=== PATIENT | male | born 1965 | race Caucasian/White ===

== ENCOUNTER 2016-11-07 11:20 | Outpatient (CLI) | payer BC | END 2016-11-07 11:21 | disposition home or self-care (01) | DX: M51.26 Other intervertebral disc displacement, lumbar region (principal); M99.03 Segmental and somatic dysfunction of lumbar region; M54.16 Radiculopathy, lumbar region ==

== ENCOUNTER 2016-11-28 14:49 | Outpatient (CLI) | payer BC | END 2016-11-28 14:50 | disposition home or self-care (01) | DX: M51.26 Other intervertebral disc displacement, lumbar region (principal); M99.03 Segmental and somatic dysfunction of lumbar region; M54.16 Radiculopathy, lumbar region ==

== ENCOUNTER 2017-02-05 09:13 | Outpatient (CLI) | payer BC ==
[2017-02-05 13:21] LABS: BASOPHILS % (AUTO) 0.8 %; EOSINOPHILS # (AUTO) 0.2 10^3/uL (0.0-0.7); EOSINOPHILS % (AUTO) 3.1 %; HCT - HEMATOCRIT 42.7 % (42.0-52.0); HGB - HEMOGLOBIN 14.6 g/dL (14.0-18.0); LYMPHOCYTES # (AUTO) 2.1 10^3/uL (1.5-3.5); LYMPHOCYTES % (AUTO) 35.6 %; MEAN CORPUSCULAR HEMOGLOBIN 30.7 pg (27.0-31.0); MEAN CORPUSCULAR HGB CONC 34.1 g/dL (32.0-36.0); MEAN CORPUSCULAR VOLUME 90.1 fL (80.0-94.0); MONOCYTES # (AUTO) 0.6 10^3/uL (0.0-1.0); MONOCYTES % (AUTO) 9.5 %; NUCLEATED RED BLOOD CELLS AUTO 0.1 /100WBC; RED BLOOD COUNT 4.74 10^6/uL (4.70-6.10); RED CELL DISTRIBUTION WIDTH 13.4 % (12.0-15.0); UNCORRECTED WHITE BLOOD COUNT 5.9 x10^3/uL; WHITE BLOOD COUNT 5.9 x10^3/uL (4.8-10.8)
[2017-02-05 13:35] LABS: ALBUMIN/GLOBULIN RATIO 1.2 (1.0-2.2); BILIRUBIN,TOTAL 0.2 mg/dL (0.2-1.0); CALCIUM 8.8 mg/dL (8.5-10.3); POTASSIUM 3.9 mmol/L (3.5-5.0); TOTAL PROTEIN 7.4 g/dL (6.7-8.2); URIC ACID 6.2 mg/dL (2.6-7.2)
[2017-02-07 13:16] LABS: ANA SCREEN NEGATIVE (NEGATIVE)
== END 2017-02-05 09:14 | disposition home or self-care (01) ==
LOC: LAB.WCP 09:13
PROVIDERS: ATTEND Family Medicine
DX: M79.643 Pain in unspecified hand (principal); H57.8 Other specified disorders of eye and adnexa
CPT/HCPCS: 36415; 80053; 84550; 85025; 85651; 86038; 86430

== ENCOUNTER 2017-04-29 23:07 | Outpatient (CLI) | payer BC | END 2017-04-29 23:08 | disposition critical access hospital (66) | LOC: EMS 23:07 | PROVIDERS: ATTEND Surgery | DX: M54.9 Dorsalgia, unspecified (principal) | CPT/HCPCS: A0425; A0429 ==

== ENCOUNTER 2017-04-29 23:34 | Emergency (ER) | payer BC ==
[2017-04-29] MEDS ORDERED: ACETAMINOPHEN 500 MG TABLET PO STA (23:42)
[2017-04-29] MEDS ORDERED: diazePAM 5 MG TABLET PO STA (23:42)
[2017-04-29] MEDS ORDERED: DEXAMETHASONE 10 MG/ML VIAL PO STA (23:42)
--- NOTE | 2017-04-29 23:48 | ED Physician Documentation ---
PD HPI BACK PAIN - Stated complaint Stated Complaint: LW BACK PN - Chief complaint Chief Complaint: Back Pain - History obtained from History obtained from: Patient, EMS - History of Present Illness Timing - onset: Today Timing - details: Gradual onset, Still present Location: Lower, Left Quality: Pain, Spasm, Aching Associated symptoms: No: Fever, Weakness, Numbness, Incontinent of urine, Unable to urinate, Hematuria Worsened by: Movement, Palpation Similar symptoms before: Work up / diagnostics, Treatment Recently seen: Not recently seen - Additional information Additional information: Patient is 51 year old male with a history of chronic low back pain, and low grade arthritis and bulging discs who is presenting to the emergency department for low back pain. Patient states that when he got up to go to work he had some pain and spasm of his left lower back. Patient states that it persisted this evening so his mom called the ambulance. Patient was able to ambulate out to the ambulance. Patient denies any trauma, bending lifting or twisting. Patient also denies any neurological deficits. Review of Systems Constitutional: denies: Fever, Chills Eyes: reports: Reviewed and negative Ears: reports: Reviewed and negative Nose: reports: Reviewed and negative Cardiac: denies: Chest pain / pressure, Palpitations Respiratory: denies: Dyspnea, Cough, Wheezing GI: denies: Abdominal Pain, Nausea, Vomiting, Constipation : denies: Frequency, Unable to Void, Incontinent Skin: denies: Rash, Lesions, Abrasion (s), Laceration (s) Musculoskeletal: reports: Back pain Neurologic: denies: Generalized weakness, Focal weakness, Numbness Immunocompromised: denies: Immunocompromised PD PAST MEDICAL HISTORY - Past Medical History Past Medical History: Yes Cardiovascular: None Respiratory: None Neuro: Other Endocrine/Autoimmune: None GI: Other : None HEENT: None Musculoskeletal: Chronic back pain Derm: None Other Past Medical History: Cerebral Palsy - Past Surgical History Past Surgical History: Yes General: Other HEENT: Other - Present Medications Home Medications: Ambulatory Orders Medication Instructions Recorded Confirmed Cyclobenzaprine [Flexeril] 10 mg PO TID PRN #14 tablet 04/30/17 - Allergies Allergies/Adverse Reactions: Allergies Allergy/AdvReac Type Severity Reaction Status Date / Time No Known Drug Allergies Allergy Verified 04/29/17 23:45 - Social History Does the pt smoke?: No Smoking Status: Never smoker Does the pt drink ETOH?: Yes Does the pt have substance abuse?: No - Immunizations Immunizations are current?: Yes - POLST Patient has POLST: No PD ED PE NORMAL - Vitals Vital signs reviewed: Yes - General General: Alert and oriented X 3, Well developed/nourished - HEENT HEENT: Atraumatic, PERRL - Neck Neck: Supple, no meningeal sign - Cardiac Cardiac: RRR, No murmur - Respiratory Respiratory: No respiratory distress - Abdomen Abdomen: Soft, Non tender, Non distended - Derm Derm: Normal color, Warm and dry, No rash - Extremities Extremities: No deformity, No tenderness to palpate, No edema - Neuro Neuro: Alert and oriented X 3, No motor deficit, No sensory deficit, Normal speech - Psych Psych: Normal mood, Normal affect PD ED PE EXPANDED - General General: Alert, In Pain - Back Back: Soft tissue tenderness, Other (mild tenderness and hypertonicity of left lumbar paraspinal muscles). No: Vertebral tenderness Results - Vitals Vitals: Vital Signs - 24 hr 04/29/17 23:35 Temperature 36.7 C Heart Rate 89 Respiratory 16 Rate Blood Pressure 159/79 H O2 Saturation 97 Oxygen O2 Source Room air PD MEDICAL DECISION MAKING - ED course Complexity details: reviewed old records, reviewed results, re-evaluated patient , considered differential, d/w patient ED course: Patient was seen and examined at bedside. patient was in mild pain but no acute distress. Patient had take motrin at home and was treated with valium, tylenol decadron. Imaging was not indicated as patient had no recent trauma or new activities. Patient had no neurological deficits and required no further work up at this time. patient was stable for discharge with outpatient follow up. Departure - Departure Disposition: 01 Home, Self Care Clinical Impression: Back pain, Muscle spasm of back Condition: Good Instructions: ED Spasm Back No Trauma Follow-Up: Ximena Tobin PA-C [Primary Care Provider] - Tomorrow Prescriptions: Cyclobenzaprine [Flexeril] 10 mg PO TID PRN #14 tablet PRN Reason: Spasms Comments: Your pain is likely secondary to your chronic conditions. You can take motrin or tylenol as needed for pain, and the flexeril for spasm. You should follow up with your doctor tomorrow, and seek orthopedic referral. You should return to the emergency department for weakness, bladder or bowel incontinence, new worsening or uncontrollable symptoms.
[2017-04-29] MEDS ORDERED: diazePAM 5 MG TABLET PO ONE (23:54)
[2017-04-29] MEDS ORDERED: DEXAMETHASONE 10 MG/ML VIAL ONE (23:55)
[2017-04-29] MEDS ORDERED: CHERRY SYRUP 10 ML UDC PO ONE (23:55)
[2017-04-29] MEDS ORDERED: ACETAMINOPHEN 500 MG TABLET PO ONE (23:55)
[2017-04-30 00:35] VITALS: BP 125/69
== END 2017-04-30 00:49 | disposition home or self-care (01) ==
LOC: EDUNIT# → ED 23:34 → SUPCPDRO 23:34 → ED 04-30 00:49
DX: M54.5 Low back pain (principal); M62.830 Muscle spasm of back; G80.9 Cerebral palsy, unspecified
CPT/HCPCS: 99283; A9270

== ENCOUNTER 2017-06-30 09:55 | Outpatient (CLI) | payer BC ==
[2017-06-30 12:35] LABS: BASOPHILS % (AUTO) 0.9 %; EOSINOPHILS # (AUTO) 0.1 10^3/uL (0.0-0.7); EOSINOPHILS % (AUTO) 1.9 %; HCT - HEMATOCRIT 42.7 % (42.0-52.0); HGB - HEMOGLOBIN 14.7 g/dL (14.0-18.0); LYMPHOCYTES # (AUTO) 1.6 10^3/uL (1.5-3.5); LYMPHOCYTES % (AUTO) 27.4 %; MEAN CORPUSCULAR HEMOGLOBIN 30.6 pg (27.0-31.0); MEAN CORPUSCULAR HGB CONC 34.5 g/dL (32.0-36.0); MEAN CORPUSCULAR VOLUME 88.8 fL (80.0-94.0); MONOCYTES # (AUTO) 0.4 10^3/uL (0.0-1.0); MONOCYTES % (AUTO) 7.7 %; NEUTROPHILS # (AUTO) 3.5 10^3/uL (1.5-6.6); NEUTROPHILS % (AUTO) 62.1 %; NUCLEATED RED BLOOD CELLS AUTO 0.1 /100WBC; RED BLOOD COUNT 4.81 10^6/uL (4.70-6.10); RED CELL DISTRIBUTION WIDTH 13.3 % (12.0-15.0); UNCORRECTED WHITE BLOOD COUNT 5.7 x10^3/uL; WHITE BLOOD COUNT 5.7 x10^3/uL (4.8-10.8)
[2017-06-30 13:04] LABS: ALBUMIN/GLOBULIN RATIO 1.2 (1.0-2.2); BILIRUBIN,TOTAL 0.5 mg/dL (0.2-1.0); BUN - BLOOD UREA NITROGEN 15 mg/dL (6-20); CARBON DIOXIDE - CO2 24 mmol/L (21-32); CHLORIDE 103 mmol/L (101-111); CHOL/HDL RATIO 6.7 (<5.0); CHOLESTEROL 247 mg/dL; GFR - MDRD 78 (>89); GLUCOSE 117 mg/dL (70-100); HDL CHOLESTEROL 37 mg/dL; LDL/HDL RATIO 4.1 (<3.6); POTASSIUM 3.8 mmol/L (3.5-5.0); SODIUM 135 mmol/L (135-145); TOTAL PROTEIN 7.5 g/dL (6.7-8.2); TRIGLYCERIDES 284 mg/dL; VLDL CHOLESTEROL 57 mg/dL
== END 2017-06-30 09:56 | disposition home or self-care (01) ==
LOC: LAB.WCP 09:55
PROVIDERS: ATTEND Physician Assistant Medical
DX: Z00.00 Encounter for general adult medical examination without abnormal findings (principal); Z12.5 Encounter for screening for malignant neoplasm of prostate
CPT/HCPCS: 36415; 80053; 80061; 84153; 84443; 85025

== ENCOUNTER 2017-11-25 16:37 | Emergency (ER) | payer SELFPAY ==
[2017-11-25 17:17] LABS: BASOPHILS # (AUTO) 0.1 10^3/uL (0.0-0.1); BASOPHILS % (AUTO) 0.4 %; EOSINOPHILS % (AUTO) 0.1 %; HGB - HEMOGLOBIN 15.2 g/dL (14.0-18.0); LYMPHOCYTES # (AUTO) 0.9 10^3/uL (1.5-3.5); LYMPHOCYTES % (AUTO) 5.6 %; MEAN CORPUSCULAR HEMOGLOBIN 29.3 pg (27.0-31.0); MEAN CORPUSCULAR HGB CONC 33.2 g/dL (32.0-36.0); MEAN CORPUSCULAR VOLUME 88.5 fL (80.0-94.0); MEAN PLATELET VOLUME 8.1 fL (7.4-11.4); MONOCYTES # (AUTO) 0.7 10^3/uL (0.0-1.0); MONOCYTES % (AUTO) 4.5 %; NEUTROPHILS # (AUTO) 13.7 10^3/uL (1.5-6.6); NEUTROPHILS % (AUTO) 89.4 %; PLT - PLATELET COUNT 309 10^3/uL (130-450); RED BLOOD COUNT 5.19 10^6/uL (4.70-6.10); RED CELL DISTRIBUTION WIDTH 13.6 % (12.0-15.0); WHITE BLOOD COUNT 15.3 x10^3/uL (4.8-10.8)
[2017-11-25 17:30] LABS: ALBUMIN 4.7 g/dL (3.2-5.5); ALBUMIN/GLOBULIN RATIO 1.1 (1.0-2.2); BILIRUBIN,TOTAL 0.9 mg/dL (0.2-1.0); CREATININE 1.4 mg/dL (0.6-1.2); TOTAL PROTEIN 8.8 g/dL (6.7-8.2)
--- NOTE | 2017-11-25 18:04 | ED Physician Documentation ---
PD HPI ABD PAIN - Stated complaint Stated Complaint: ABD PX/NAUSEA - Chief complaint Chief Complaint: Abd Pain - History obtained from History obtained from: Patient - History of Present Illness Timing - onset: Today (about 6 am) Timing - duration: Hours (12) Timing - details: Gradual onset, Still present Quality: Cramping, Aching, Pain Location: RUQ, RLQ Radiation: Right flank Improved by: No: Vomiting Worsened by: No: Eating Associated symptoms: Nausea, Vomiting, Loss of appetite. No: Fever, Hematemesis , Diarrhea, Melena, Dysuria, Hematuria Similar symptoms before: Has not had sx before Recently seen: Clinic (went to PCP today with this and sent to ED for evaluation with concern for gallbladder or Appy.) Review of Systems Constitutional: reports: Chills. denies: Fever Nose: denies: Rhinorrhea / runny nose, Congestion Throat: denies: Sore throat Cardiac: denies: Chest pain / pressure, Palpitations Respiratory: denies: Cough GI: reports: Abdominal Pain, Nausea, Vomiting. denies: Abdominal Swelling, Constipation, Diarrhea, Bloody / black stool : denies: Dysuria, Frequency, Testicular pain, Testicular mass Skin: denies: Rash, Lesions Musculoskeletal: reports: Back pain Neurologic: denies: Generalized weakness, Focal weakness, Numbness, Near syncope PD PAST MEDICAL HISTORY - Past Medical History Cardiovascular: None Respiratory: None Endocrine/Autoimmune: None GI: Other : None HEENT: None Musculoskeletal: Chronic back pain Derm: None - Past Surgical History Past Surgical History: Yes General: Other HEENT: Other - Present Medications Home Medications: Ambulatory Orders Medication Instructions Recorded Confirmed Naproxen [Naprosyn] 500 mg PO BID #20 tablet 11/25/17 Ondansetron Odt [Zofran] 4 mg TL Q6H PRN #15 tablet 11/25/17 Oxycodone HCl/Acetaminophen 1 each PO Q6H PRN #20 tablet 11/25/17 [Percocet 5-325 mg Tablet] - Allergies Allergies/Adverse Reactions: Allergies Allergy/AdvReac Type Severity Reaction Status Date / Time No Known Drug Allergies Allergy Verified 11/25/17 16:53 - Social History Does the pt smoke?: No Smoking Status: Never smoker Does the pt drink ETOH?: Yes Does the pt have substance abuse?: No - Immunizations Immunizations are current?: Yes - POLST Patient has POLST: No PD ED PE NORMAL - Vitals Vital signs reviewed: Yes - General General: Alert and oriented X 3, Well developed/nourished, Other (appears in pain) - HEENT HEENT: Pharynx benign - Neck Neck: Supple, no meningeal sign, No adenopathy - Cardiac Cardiac: RRR, No murmur - Respiratory Respiratory: Clear bilaterally - Abdomen Abdomen: Normal bowel sounds, Soft, Non distended, No organomegaly, Other ( tender RLQ to right lateral with guarding and some percussion tenderness. No rebound tenderness. ) - Male Male : Other (no inguinal hernias nor scrotal tenderness. ) - Rectal Rectal: Deferred - Back Back: Other (some right CVA tenderness. ) - Derm Derm: Normal color, Warm and dry - Extremities Extremities: No deformity, No tenderness to palpate, Normal ROM s pain, No edema , No calf tenderness / cord - Neuro Neuro: Alert and oriented X 3, No motor deficit, Normal speech - Psych Psych: Normal mood, Normal affect Results - Vitals Vitals: Oxygen O2 Source Room air - Labs Labs: Laboratory Tests 11/25/17 11/25/17 11/25/17 17:06 17:06 21:05 WBC 15.3 H RBC 5.19 Hgb 15.2 Hct 45.9 MCV 88.5 MCH 29.3 MCHC 33.2 RDW 13.6 Plt Count 309 MPV 8.1 Neut # 13.7 H Lymph # 0.9 L [place] # 0.7 Eos # 0.0 Baso # 0.1 Absolute Nucleated RBC 0.00 Nucleated RBC % 0.0 Sodium 133 L Potassium 4.3 Chloride 97 L Carbon Dioxide 25 Anion Gap 11.0 BUN 13 Creatinine 1.4 H Estimated GFR (MDRD) 53 L Glucose 142 H Calcium 10.0 Total Bilirubin 0.9 AST 37 ALT 47 Alkaline Phosphatase 63 Total Protein 8.8 H Albumin 4.7 Globulin 4.1 Albumin/Globulin Ratio 1.1 Lipase 30 Urine Color YELLOW Urine Clarity CLEAR Urine pH 6.5 Ur Specific [place] <=1.005 Urine Protein NEGATIVE Urine Glucose (UA) NEGATIVE Urine Ketones NEGATIVE Urine Occult Blood MODERATE H Urine Nitrite NEGATIVE Urine Bilirubin NEGATIVE Urine Urobilinogen 0.2 (NORMAL) Ur Leukocyte Esterase NEGATIVE Urine RBC 11-25 H Urine WBC 0-3 Ur Squamous Epith Cells NONE SEEN Urine Bacteria None Seen Ur Microscopic Review INDICATED Urine Culture Comments NOT INDICATED - Rads (name of study) abd CT Radiology: Prelim report reviewed (gallbladder and appendix are okay. Distal right ureteral stone 3 mm with moderate obstruction. No free fluid. ) PD MEDICAL DECISION MAKING - ED course Complexity details: reviewed results (he was in ED awhile to ensure pain stayed away and also he did not urinate for awhile. I wanted to ensure not infected stone, given the pain and elevated WBC. Finally did urinate and no signs of infection. ), re-evaluated patient (feeling better with IV meds and then with Dx of ureterolithiasis, gave lido IV as well, which really helped even more. Remained at mild level of pain up to discharge. ), considered differential ( seems concerning for appy or possibly gallbladder, with abd tenderness and guarding. Positive leg raise. Will get CT. ), d/w patient Departure - Departure Disposition: 01 Home, Self Care Clinical Impression: Right sided abdominal pain, Ureterolithiasis Condition: Stable Record reviewed to determine appropriate education?: Yes Instructions: ED Stone Renal W Colic Follow-Up: Sj Pina MD [Primary Care Provider] - Prescriptions: Naproxen [Naprosyn] 500 mg PO BID #20 tablet Ondansetron Odt [Zofran] 4 mg TL Q6H PRN #15 tablet PRN Reason: Nausea / Vomiting Oxycodone HCl/Acetaminophen [Percocet 5-325 mg Tablet] 1 each PO Q6H PRN #20 tablet PRN Reason: Pain Comments: Drink adequate fluids. Naproxen or ibuprofen twice daily for the next week or so until he passes a stone. Ondansetron if needed for nausea. Add Tylenol or Percocet if needed for pain. Follow-up with Dr. NUNEZ in the next 2-3 days if not improved completely. The stone is small enough that should pass over the next few days. Your CT scan showed normal appendix and gallbladder. The urine sample did not show signs of infection. Return if more severe pain not controlled at home with oral medications. Discharge Date/Time: 11/25/17 23:18
[2017-11-25] MEDS ORDERED: IOPAMIDOL-300 100 ML VIAL ONE (18:16)
[2017-11-25] MEDS: IOPAMIDOL-300 100 ML VIAL IVP ONE (18:31)
[2017-11-25] MEDS: SODIUM CHLORIDE 0.9% 1,000 ML IV ONE ×2 (18:32→20:37)
[2017-11-25] MEDS: ONDANSETRON 4 MG/2 ML VIAL IVP STA (18:34)
[2017-11-25] MEDS: MORPHINE 10 MG/ML VIAL IVP STA (18:35)
[2017-11-25] MEDS: FAMOTIDINE 20 MG/50 ML 50 ML IV ONE (18:36)
--- NOTE | 2017-11-25 18:50 | CT Report ---
EXAM: CT ABDOMEN AND PELVIS EXAM DATE: 11/25/2017 06:32 PM. CLINICAL HISTORY: Right abdominal pain. COMPARISONS: None. TECHNIQUE: Routine helical CT imaging was performed through the abdomen and pelvis. IV contrast: 100M L ISOVUE 300. Enteric contrast: No. Reconstructions: Coronal and sagittal. In accordance with CT protocol optimization, one or more of the following dose reduction techniques w ere utilized for this exam: automated exposure control, adjustment of mA and/or KV based on patient s ize, or use of iterative reconstructive technique. FINDINGS: Lung Bases: Lung bases are clear. No pleural or pericardial effusions. No cardiac enlargement. Small hiatal hernia noted. Liver: Fatty liver. No mass. Gallbladder/Bile Ducts: Unremarkable. Spleen: Normal. Pancreas: Normal. Adrenal Glands: Normal. Kidneys: Obstructing 3 mm stone at the right ureterovesical junction results in moderate right hydrou reter and hydronephrosis and perinephric stranding. No additional obstructing or nonobstructing renal calculi. Left kidney is normal. No mass is noted. Peritoneal Cavity/Bowel: Normal. No free fluid, free air or adenopathy. No masses or acute inflammato ry process. The appendix is well visualized and normal. There are multiple diverticula seen which mos t severely affect the sigmoid colon. No wall thickening or adjacent inflammation seen. No obstructi on noted. Small fat-containing umbilical hernia is noted. Pelvic Organs: Mild prostate and moderate seminal vesicle enlargement. Central coarse prostate calcif ications. Normal bladder. Vasculature: Patchy calcified atheromatous plaques are present in the abdominal aorta and branch vess els. No aneurysm. Normal IVC. Bones: No significant abnormality. Other: None. IMPRESSION: 1. Obstructing 3 mm right ureterovesicle junction stone results in mild to moderate hydroureter and h ydronephrosis and delayed enhancement and moderate perinephric stranding. No renal mass. No obstructi ng left-sided stones. 2. Diverticulosis. No inflammation. Normal appendix. 3. Fatty liver. No mass. [facility] Referring Provider Line: [phone] SITE ID: [id number]
[2017-11-25] MEDS: KETOROLAC 60 MG/2 ML VIAL IVP STA (20:05)
[2017-11-25] MEDS: LIDOCAINE-MPF 2% 6 ML in SODIUM CHLORIDE 0.9% 50 ML IV STA (20:10)
[2017-11-25 22:12] LABS: BILIRUBIN,URINE NEGATIVE (NEGATIVE); GLUCOSE, URINE (UA) NEGATIVE (NEGATIVE); KETONES,URINE (UA) NEGATIVE (NEGATIVE); LEUKOCYTE ESTERASE, URINE NEGATIVE (NEGATIVE); NITRITE,URINE NEGATIVE (NEGATIVE); OCCULT BLOOD,URINE MODERATE (NEGATIVE); PH,URINE 6.5 PH (5.0-7.5); PROTEIN,URINE NEGATIVE (NEGATIVE); UROBILINOGEN,URINE 0.2 (NORMAL) E.U./dL (NORMAL)
[2017-11-25 22:16] LABS: CLARITY,URINE CLEAR (CLEAR)
[2017-11-25 22:20] LABS: BACTERIA,URINE None Seen /HPF (None Seen); SQUAMOUS EPITHELIAL CELL,UR NONE SEEN (<= Few)
[2017-11-25] MEDS: oxyCODONE/ACET 5/325 Prepack 4 PO STA (22:50)
[2017-11-25] MEDS: ONDANSETRON ODT 4 MG Prepack 2 TL PRN (22:50)
[2017-11-25 22:55] VITALS: BP 136/92
== END 2017-11-25 23:18 | disposition home or self-care (01) ==
LOC: ED 16:37
DX: N13.2 Hydronephrosis with renal and ureteral calculous obstruction (principal)
CPT/HCPCS: 36415; 74177; 80053; 81001; 81003; 83690; 85025; 87086; 96361; 96365; 96375; 99284

== ENCOUNTER 2019-01-25 13:29 | Emergency (ER) | payer SELFPAY ==
[2019-01-25 13:39] VITALS: BP 122/87
--- NOTE | 2019-01-25 15:22 | ED Physician Documentation ---
PD HPI BACK PAIN - Stated complaint Stated Complaint: LOW BACK PX - Chief complaint Chief Complaint: Back Pain - History obtained from History obtained from: Patient - History of Present Illness Timing - onset: How many days ago (2) Timing - duration: Days (2) Timing - details: Gradual onset Pain level max: 8 Pain level now: 8 Location: Lower, Right, Left Quality: Pain, Spasm, Similar to prior episodes Associated symptoms: No: Fever, Weakness, Numbness, Incontinent of urine, Unable to urinate, Hematuria, Incontinent of stool Improves with: Rest Worsened by: Movement - Additional information Additional information: states increased pain after chiropractor visit this am. Feels like prior spasms. Review of Systems Constitutional: denies: Fever, Chills Skin: denies: Rash Musculoskeletal: denies: Neck pain Neurologic: denies: Focal weakness, Numbness PD PAST MEDICAL HISTORY - Past Medical History Past Medical History: No Cardiovascular: None Respiratory: None Neuro: None Endocrine/Autoimmune: None GI: Other : None HEENT: None Psych: None Musculoskeletal: Chronic back pain Derm: None - Past Surgical History Past Surgical History: Yes General: Other HEENT: Other - Present Medications Home Medications: Ambulatory Orders Medication Instructions Recorded Confirmed Naproxen [Naprosyn] 500 mg PO BID #20 tablet 11/25/17 Ondansetron Odt [Zofran] 4 mg TL Q6H PRN #15 tablet 11/25/17 Oxycodone HCl/Acetaminophen 1 each PO Q6H PRN #20 tablet 11/25/17 [Percocet 5-325 mg Tablet] Hydrocodone/Acetaminophen 1 - 2 each PO Q6H PRN #14 tablet 01/25/19 [Hydrocodon-Acetaminophen 5-325] Meloxicam [Mobic] 15 mg PO DAILY PRN #20 tablet 01/25/19 diazePAM [Valium] 5 - 10 mg PO TID PRN #15 tablet 01/25/19 - Allergies Allergies/Adverse Reactions: Allergies Allergy/AdvReac Type Severity Reaction Status Date / Time No Known Drug Allergies Allergy Verified 01/25/19 13:39 - Social History Does the pt smoke?: No Smoking Status: Never smoker Does the pt drink ETOH?: Yes Does the pt have substance abuse?: No - Immunizations Immunizations are current?: Yes - POLST Patient has POLST: No PD ED PE NORMAL - Vitals Vital signs reviewed: Yes - General General: Alert and oriented X 3, No acute distress, Well developed/nourished - HEENT HEENT: Moist mucous membranes - Neck Neck: Supple, no meningeal sign - Cardiac Cardiac: RRR, Strong equal pulses - Respiratory Respiratory: No respiratory distress, Clear bilaterally - Abdomen Abdomen: Soft, Non tender, Non distended - Back Back: No spinal TTP (no midline TTP. No stepoff or deformity. B paraspinal low lumbar spasm present.) - Derm Derm: Warm and dry - Extremities Extremities: No edema - Neuro Neuro: Alert and oriented X 3, No motor deficit, No sensory deficit - Psych Psych: Normal mood, Normal affect Results - Vitals Vitals: Vital Signs - 24 hr 01/25/19 13:37 Temperature 36.4 C L Heart Rate 80 Respiratory 16 Rate Blood Pressure 122/87 H O2 Saturation 97 Oxygen O2 Source Room air PD MEDICAL DECISION MAKING - ED course Complexity details: reviewed results, re-evaluated patient, considered differential (No cauda equina, no spinal epidural abscess, no fracture, no aortic dissection or evidence of aneursym rupture), d/w patient ED course: 53-year-old male presents to the emergency department with muscle spasm in the back. Feels better after Toradol and Valium. Will prescribe medications for home and follow-up with his doctor. Patient is well-appearing, nontoxic. Afebrile. No evidence of cauda equina or epidural abscess. Patient counseled regarding signs and symptoms for which I believe and urgent re-evaluation would be necessary. Patient with good understanding of and agreement to plan and is comfortable going home at this time This document was made in part using voice recognition software. While efforts are made to proofread this document, sound alike and grammatical errors may occur. Departure - Departure Disposition: 01 Home, Self Care Clinical Impression: Muscle spasm of back Condition: Good Instructions: ED Spasm Back No Trauma Follow-Up: your,doctor in 1 week [Other] Prescriptions: diazePAM [Valium] 5 - 10 mg PO TID PRN #15 tablet PRN Reason: Spasms Hydrocodone/Acetaminophen [Hydrocodon-Acetaminophen 5-325] 1 - 2 each PO Q6H PRN #14 tablet PRN Reason: pain Meloxicam [Mobic] 15 mg PO DAILY PRN #20 tablet PRN Reason: pain Comments: Follow-up with your doctor for further care. This should improve over the next few days. Do not drink alcohol or drive while on narcotic pain medicine. Note that many narcotic pain relievers also contain tylenol/acetaminophen. Please ensure that your total dose of acetaminophen from all sources does not exceed 3 grams (3000mg) per day. You may constipated on this medication, take a stool softener such as "Colace" twice a day while you are on it. Also recommend a [id number]-hwe-itomoex laxative such as senna or MiraLAX any day that you do not have a bowel movement. If you received narcotic pain medication in the emergency department, do not drive or operate machinery for the next 24 hours. Discharge Date/Time: 01/25/19 16:12
[2019-01-25] MEDS ORDERED: HYDROcod/ACETAM 5/325 MG TABLET PO STA (15:28)
[2019-01-25] MEDS ORDERED: KETOROLAC 60 MG/2 ML VIAL IM STA (15:29)
[2019-01-25] MEDS ORDERED: diazePAM 5 MG TABLET PO STA (15:29)
== END 2019-01-25 16:12 | disposition home or self-care (01) ==
LOC: EDUNIT# → ED 13:29
DX: M62.830 Muscle spasm of back (principal); M54.5 Low back pain
CPT/HCPCS: 96372; 99283; 99284; A9270

== ENCOUNTER 2019-01-25 15:55 | Outpatient (CLI) | payer SELFPAY | END 2019-01-25 15:56 | disposition critical access hospital (66) | LOC: EMS 15:55 | PROVIDERS: ATTEND Surgery | DX: R25.2 Cramp and spasm (principal); M54.5 Low back pain | CPT/HCPCS: A0425; A0429 ==

== ENCOUNTER 2022-10-21 14:58 | Outpatient (CLI) | payer OTHER ==
[2022-10-21 17:33] LABS: BASOPHILS # (AUTO) 0.1 10^3/uL (0.0-0.1); BASOPHILS % (AUTO) 0.9 %; EOSINOPHILS # (AUTO) 0.1 10^3/uL (0.0-0.7); EOSINOPHILS % (AUTO) 1.6 %; HCT - HEMATOCRIT 45.1 % (42.0-52.0); HGB - HEMOGLOBIN 15.5 g/dL (14.0-18.0); LYMPHOCYTES # (AUTO) 2.3 10^3/uL (1.5-3.5); LYMPHOCYTES % (AUTO) 30.2 %; MEAN CORPUSCULAR HEMOGLOBIN 30.3 pg (27.0-31.0); MEAN CORPUSCULAR HGB CONC 34.4 g/dL (32.0-36.0); MEAN CORPUSCULAR VOLUME 88.3 fL (80.0-94.0); MEAN PLATELET VOLUME 10.4 fL (7.4-11.4); MONOCYTES # (AUTO) 0.6 10^3/uL (0.0-1.0); MONOCYTES % (AUTO) 8.1 %; NEUTROPHILS # (AUTO) 4.5 10^3/uL (1.5-6.6); NEUTROPHILS % (AUTO) 58.9 %; PLT - PLATELET COUNT 361 10^3/uL (130-450); RED BLOOD COUNT 5.11 10^6/uL (4.70-6.10); RED CELL DISTRIBUTION WIDTH 12.3 % (12.0-15.0); WHITE BLOOD COUNT 7.6 x10^3/uL (4.8-10.8)
[2022-10-21 17:44] LABS: ALBUMIN 4.5 g/dL (3.2-5.5); ALBUMIN/GLOBULIN RATIO 1.3 (1.0-2.2); BILIRUBIN,TOTAL 0.3 mg/dL (0.2-1.0); CALCIUM 9.6 mg/dL (8.5-10.3)
== END 2022-10-21 14:59 | disposition home or self-care (01) ==
LOC: LAB.N 14:58
PROVIDERS: ATTEND Physician Assistant Medical
DX: R10.32 Left lower quadrant pain (principal)
CPT/HCPCS: 36415; 80053; 83690; 85025

== ENCOUNTER 2022-10-22 11:29 | Outpatient (CLI) | payer OTHER ==
[2022-10-22] MEDS ORDERED: iohexoL-300 100 ML VIAL ONE ×2 (11:45→12:45)
[2022-10-22] MEDS ORDERED: iohexoL-300 100 ML VIAL IVP ONE (13:51)
[2022-10-22] MEDS ORDERED: DIATRIZOATE MEGLU/DIATRIZO SOD 30 ML BOTTLE PO ONE (13:51)
--- NOTE | 2022-10-22 14:11 | CT Report ---
PROCEDURE: ABDOMEN/PELVIS W INDICATIONS: LLQ ABD PAIN CONTRAST: 100ml Omnipaque 300 TECHNIQUE: After the administration of IV and oral contrast, 5 mm thick sections acquired from the diaphragms to the symphysis. 5 mm thick coronal and sagittal reformats were acquired. For radiation dose reducti on, the following was used: automated exposure control, adjustment of mA and/or kV according to patti ent size. COMPARISON: 11/25/2017 FINDINGS: Image quality: Good Lower chest: Suspected distal esophageal small amount of reflux. Solid organs: Possible hepatic steatosis. No splenomegaly. Gallbladder is unremarkable. No pathologic dilation of biliary tree or pancreatic duct. There is a small duodenal diverticulum. No adrenal nodu les. No hydronephrosis. Vessels and lymph nodes: No abdominal aortic aneurysm. No pathologic adenopathy by size criteria. The main portal vein appears patent. Bowel and peritoneum: No evidence of small bowel obstruction. No pathologic ascites. Moderate colorec jose a stool burden. There are colonic diverticula, without definite signs of acute inflammation. Append ix appears normal. Body wall: Small fat-containing inguinal hernias. Pelvis: Bladder is underdistended. Prostate is heterogeneous, not well evaluated on CT. Bones: No acute or significant osseous finding. There are degenerative changes. IMPRESSION: Suspected chronic diverticular disease without acute inflammation or other acute abdominopelvic abnor mality. Consider correlation with age-appropriate colonoscopy results. Other findings as above. Reviewed by: Ronaldo Vale MD on 10/22/2022 2:10 PM PDT Approved by: Ronaldo Vale MD on 10/22/2022 2:10 PM PDT Station ID: [id number]
== END 2022-10-22 11:30 | disposition home or self-care (01) ==
LOC: DI 11:29
PROVIDERS: ATTEND Physician Assistant Medical
DX: R10.32 Left lower quadrant pain (principal); K57.10 Diverticulosis of small intestine without perforation or abscess without bleeding
CPT/HCPCS: 74177; Q9963; Q9967

== ENCOUNTER 2023-08-06 10:44 | Outpatient (CLI) | payer OTHER ==
[2023-08-06 17:48] LABS: BASOPHILS # (AUTO) 0.1 10^3/uL (0.0-0.1); BASOPHILS % (AUTO) 0.8 %; EOSINOPHILS # (AUTO) 0.1 10^3/uL (0.0-0.7); EOSINOPHILS % (AUTO) 1.8 %; HCT - HEMATOCRIT 47.6 % (42.0-52.0); HGB - HEMOGLOBIN 15.9 g/dL (14.0-18.0); LYMPHOCYTES # (AUTO) 1.7 10^3/uL (1.5-3.5); LYMPHOCYTES % (AUTO) 28.8 %; MEAN CORPUSCULAR HEMOGLOBIN 29.7 pg (27.0-31.0); MEAN CORPUSCULAR HGB CONC 33.4 g/dL (32.0-36.0); MEAN CORPUSCULAR VOLUME 88.8 fL (80.0-94.0); MEAN PLATELET VOLUME 11.7 fL (7.4-11.4); MONOCYTES # (AUTO) 0.4 10^3/uL (0.0-1.0); MONOCYTES % (AUTO) 7.2 %; NEUTROPHILS # (AUTO) 3.7 10^3/uL (1.5-6.6); NEUTROPHILS % (AUTO) 61.1 %; PLT - PLATELET COUNT 297 10^3/uL (130-450); RED BLOOD COUNT 5.36 10^6/uL (4.70-6.10); RED CELL DISTRIBUTION WIDTH 12.3 % (12.0-15.0)
[2023-08-06 17:56] LABS: CREATININE,URINE 127.4 mg/dL; MICROALBUM/CREATININE RATIO,UR 38.5 ug/mg (<30.0); MICROALBUMIN,URINE 4.9 mg/dL
[2023-08-06 18:07] LABS: ALBUMIN 4.1 g/dL (3.2-5.5); ALBUMIN/GLOBULIN RATIO 1.1 (1.0-2.2); ALKALINE PHOSPHATASE 77 IU/L (42-121); ALT ALANINE AMINOTRANSFERASE 35 IU/L (10-60); AST ASPARTATE AMINOTRANSFERASE 24 IU/L (10-42); BILIRUBIN,TOTAL 0.7 mg/dL (0.2-1.0); BUN - BLOOD UREA NITROGEN 17 mg/dL (6-20); CALCIUM 9.2 mg/dL (8.5-10.3); CARBON DIOXIDE - CO2 26 mmol/L (21-32); CHLORIDE 98 mmol/L (101-111); CHOL/HDL RATIO 6.9 (<5.0); CHOLESTEROL 274 mg/dL; GFR - MDRD 77 (>89); GLUCOSE 270 mg/dL (74-104); HDL CHOLESTEROL 40 mg/dL; LDL CHOLESTEROL,CALCULATED 192 mg/dL; LDL/HDL RATIO 4.8 (<3.6); POTASSIUM 4.2 mmol/L (3.5-4.5); SODIUM 133 mmol/L (135-145); TOTAL PROTEIN 7.8 g/dL (6.4-8.9); TRIGLYCERIDES 209 mg/dL (48-352); VLDL CHOLESTEROL 42 mg/dL
[2023-08-06 18:44] LABS: THYROID STIMULATING HORMONE 0.89 uIU/mL (0.34-5.60)
[2023-08-06 21:50] LABS: ESTIMATED AVERAGE GLUCOSE 318 mg/dL (70-100); HEMOGLOBIN A1c% 12.7 % (4.27-6.07)
== END 2023-08-06 10:45 | disposition home or self-care (01) ==
LOC: LAB.N 10:44
PROVIDERS: ATTEND Nurse Practitioner
DX: E11.9 Type 2 diabetes mellitus without complications (principal); E78.5 Hyperlipidemia, unspecified; Z12.5 Encounter for screening for malignant neoplasm of prostate; R53.83 Other fatigue
CPT/HCPCS: 36415; 80053; 80061; 82043; 82570; 83036; 83721; 84153; 84443; 85025